=== PATIENT | male | born 1970 | race Caucasian/White ===

== ENCOUNTER 2024-02-28 14:37 | Emergency (ER) | payer MEDICAID ==
[~2024-02-28] VITALS: Ht 167.6 cm; Wt 75.0 kg
[2024-02-28] MEDS ORDERED: TRAZ-256 PO (15:41)
[2024-02-28] MEDS ORDERED: ONDA-243 PO (15:41)
[2024-02-28] MEDS ORDERED: CLON1PAT42 TD (15:41)
[2024-02-28 15:53] VITALS: BP 140/105; PULSE 84; RESP 13; TEMP 98.7; O2SAT 100
[2024-02-28] MEDS ORDERED: NICO-687 TOP (15:54)
== END 2024-02-28 15:52 | disposition home or self-care (01) ==
LOC: ER 14:38
DX: F11.23 Opioid dependence with withdrawal (principal); Z79.899 Other long term (current) drug therapy
CPT/HCPCS: 99281; 99283